=== PATIENT | male | born 2000 | race Two or more races ===

== ENCOUNTER 2024-08-23 16:28 | Emergency (ER) | payer MEDICARE, MEDICAID, SELFPAY ==
[2024-08-23 16:28] VITALS: PULSE 98; RESP 18; O2SAT 99
[2024-08-23 16:43] VITALS: BP 147/95; PULSE 110; RESP 18; TEMP 37.1; O2SAT 97; BMI 24.7
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
== END 2024-08-23 19:44 | disposition home or self-care (01) ==
PROVIDERS: Emergency Provider Emergency Medicine; PCP Nurse Practitioner Family
DX: S19.9XXA Unspecified injury of neck, initial encounter (principal); S09.90XA Unspecified injury of head, initial encounter; V89.9XXA Person injured in unspecified vehicle accident, initial encounter
CPT/HCPCS: 70450; 72125; 99284

== ENCOUNTER → 2025-06-14 | Outpatient (CLI) | payer MEDICARE, MEDICAID, SELFPAY ==
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
== END | disposition home or self-care (01) ==
PROVIDERS: PCP Student in an Organized Health Care Education/Training Program; Referring Provider Student in an Organized Health Care Education/Training Program; Visit Provider Student in an Organized Health Care Education/Training Program
DX: S49.91XA Unspecified injury of right shoulder and upper arm, initial encounter (principal); X58.XXXA Exposure to other specified factors, initial encounter
CPT/HCPCS: 73030